=== PATIENT | male | born 1940 | race Caucasian/White ===

== ENCOUNTER → 2023-09-29 10:39 | Outpatient (REF) | payer BC, SELFPAY | LOC: RAD 10:39 | PROVIDERS: ATTENDING PHYSICIAN Family Medicine | DX: R60.9 Edema, unspecified (principal) | CPT/HCPCS: 93971 ==

== ENCOUNTER → 2023-10-23 11:00 | Outpatient (REF) | payer BC, SELFPAY | LOC: RAD 11:00 | PROVIDERS: ATTENDING PHYSICIAN Family Medicine | DX: M25.521 Pain in right elbow (principal) | CPT/HCPCS: 73080 ==

== ENCOUNTER 2023-12-27 06:27 | Day surgery (SDC) | payer BC, SELFPAY | END 2023-12-27 13:29 | disposition home or self-care (01) | LOC: GI 06:27 | PROVIDERS: ATTENDING PHYSICIAN Internal Medicine | DX: D12.4 Benign neoplasm of descending colon (principal); Z86.0101 Personal history of adenomatous and serrated colon polyps; K64.9 Unspecified hemorrhoids; N40.2 Nodular prostate without lower urinary tract symptoms; K57.30 Diverticulosis of large intestine without perforation or abscess without bleeding; D12.2 Benign neoplasm of ascending colon; D12.0 Benign neoplasm of cecum; D12.5 Benign neoplasm of sigmoid colon | CPT/HCPCS: 45385; 88305 ==

== ENCOUNTER → 2024-01-22 13:09 | Outpatient (REF) | payer BC, SELFPAY | LOC: RAD 13:09 | PROVIDERS: ATTENDING PHYSICIAN Internal Medicine; FAMILY PHYSICIAN Family Medicine | DX: M17.0 Bilateral primary osteoarthritis of knee (principal) | CPT/HCPCS: 73560; 73565 ==

== ENCOUNTER 2024-07-26 21:36 | Emergency (ER) | payer BC, SELFPAY ==
[2024-07-26 22:03] VITALS: BP 162/95
[2024-07-26 22:47] LABS: % Basophils 0.6 % (0-2); % Immature Granulocytes 0.4 % (0-0.5); % Lymphocytes 18.5 % (20.5-51.1); % Monocytes 7.6 % (1.7-9.3); % Neutrophils 70.9 % (42.2-75.2); Absolute Basophils 0.1 10^3/uL (0-0.2); Absolute Eosinophils 0.2 10^3/uL (0-0.7); Absolute Lymphocytes 1.5 10^3/uL (1.2-3.4); Absolute Monocytes 0.6 10^3/uL (0.1-0.6); Absolute Neutrophils 5.8 10^3/uL (1.4-6.5); Hematocrit 42.2 % (39.0-52.0); Hemoglobin 14.6 g/dL (13.0-18.0); Lactic Acid 1.2 mmol/L (0.7-2.0); Mean Corp Hgb Conc. 34.6 g/dL (33.0-37.0); Mean Corpuscular Hgb 31.9 pg (27.0-31.0); Mean Corpuscular Volume 92.1 fL (80.0-94.0); Mean Platelet Volume 11.1 fL (7.4-10.4); Nucleated Red Blood Cells % 0 % (-); Platelet Count 136 10^3/uL (130-400); Red Blood Cell Count 4.58 10^6/uL (4.70-6.10); Red Cell Dist. Width 12.8 % (11.5-14.5); White Blood Cell Count 8.2 10^3/uL (4.8-10.8)
[2024-07-26 22:48] LABS: INR 1.22; PT 15.7 Sec (11.4-14.6)
[2024-07-26 22:58] LABS: ALT (SGPT) 20 U/L (0-50); AST (SGOT) 24 U/L (17-59); Albumin 4.5 g/dl (3.5-5.0); Alkaline Phosphatase 76 U/L (38-126); Blood Urea Nitrogen 16 mg/dl (9-20); Calcium 9.6 mg/dl (8.4-10.2); Carbon Dioxide 27 mmol/L (22-30); Chloride 107 mmol/L (98-107); Glucose 116 mg/dl (70-99); Potassium 4.2 mmol/L (3.5-5.1); Sodium 142 mmol/L (135-145); Total Bilirubin 0.9 mg/dl (0.2-1.3); Total Protein 7.5 g/dl (6.3-8.2); eGFR > 60.00
[2024-07-26 23:56] VITALS: BMI 28.4
[2024-07-27] VITALS: BP 180/105
[2024-07-27 00:35] VITALS: BP 158/99
--- NOTE | 2024-07-27 00:37 | ED.GENMED ---
History of Present Illness
General
Chief Complaint: Skin Problem
Source: patient and family
Time Seen by Provider: 07/27/24 00:11
History of Present Illness
History of Present Illness:
This patient is an 84-year-old male who presents emergency department with a few days history of pain in the fourth toe on the left side. He denies preceding trauma or injury, fever, chills, drainage, streaking, numbness, tingling, or other
complaints. Patient has chronic lower extremity edema that is unchanged, left greater than right.
Past History
Past History
ED Past Medical History: Arrthythmia, Hypercholesterolemia and Other (General osteoarthritis,)
ED Past Surgical History: Orthopedic
Social History
Tobacco: Non-smoker
Alcohol: Occasional
Drug: None
Personal:
Living: alone
Employment: Employed
Family History
Family History: Other (Noncontributory)
Phy Exam
Physical Exam
Physical Exam:
GENERAL: Alert , in no apparent distress
EYE: pupils equal and reactive
NECK: Supple, no significant adenopathy.
ENT: o/p clr, mmm.
CARDIAC: Regular rate and rhythm .
LUNGS: Clear breath sounds bilaterally, no acute respiratory distress, no wheezes/rales/rhonchi
ABDOMEN: Soft, without focal tenderness, no r/g, no cvat
NEUROLOGICAL: Alert and oriented, no focal neuro deficits
SKIN: Warm and dry, skin intact.
MUSCULOSKELETAL: bilat le edema, well perfused. There is sl redness, assoc with swelling and diffuse ttp of L 4th toe. No drdainage/fluctuance/crepitus, no streaking. no abnl otherwise of foot.
PSYCH: Normal and appropriate interaction.
Course
Orders/Labs/Results
Orders:
Orders
07/26/24 22:10
Cardiac Monitoring- Treatment ONCE
IV Insert/Care/Rem.- Treatment PRN
O2 Therapy [RESP] Urgent
Titrate/Wean O2 to maintain O2 sat greater than (%): 93
Special Instructions: TO MAINTAIN CONTINUOUS O2 SATS > OR = 93%
Pulse Ox/cont/shift [RESP] Urgent
Quantity: 1
Special Instructions: CONTINUOUS
07/26/24 22:12
Toes 2 Views, Left CR [CR Toe(s) Min 2 Vw Left] Urgent
Comment:
Reason For Exam: 4th toe pain
Indicate Which Toe:: Fourth
07/26/24 22:20
Complete Blood Count/With Diff Urgent
Comprehensive Metabolic Panel Urgent
Lactic Acid Q4H
Comment: ON ICE, CANCEL 2ND ORDER IF FIRST LACTIC ACID LEVEL <2
Prothrombin Time Urgent
Blood Culture Q20M
RAINA Source: Blood/Venous
Specimen Description:
Comment: Urgent from separate sites. If patient screens positive for possible sepsis
07/27/24 00:43
Prednisone [Deltasone] 40 mg PO NOW STA
Abnormal Lab Results
07/26/24
22:20
RBC 4.58 L 10^6/uL
(4.70-6.10)
MCH 31.9 H pg
(27.0-31.0)
MPV 11.1 H fL
(7.4-10.4)
Lymphocytes % 18.5 L %
(20.5-51.1)
PT 15.7 H Sec
(11.4-14.6)
Glucose 116 H mg/dl
(70-99)
07/26/24 22:20
07/26/24 22:20
Vital Signs
Initial and Last Documented VS:
Initial Vital Signs
Temp Pulse Resp BP Pulse Ox
97.9 F 72 20 162/95 97
07/26/24 22:03 07/26/24 22:03 07/26/24 22:03 07/26/24 22:03 07/26/24 22:03
Last Documented Vital Signs
Temp Pulse Resp BP Pulse Ox
97.9 F 66 20 158/99 97
07/26/24 22:03 07/27/24 00:35 07/26/24 22:03 07/27/24 00:35 07/27/24 00:42
*Pulse Oximetry
SaO2: 97
Oxygen Mode of Delivery: Room air
*Critical Care Note
Total Time (30-74mins, 75-104mins- exclusive of procedures): Not Applicable
Update Note
Update Note:
Patient presents to the Emergency Department with fourth toe pain
Number and Complexity of Problems Addressed at the Encounter
� Chronic conditions affecting care:
� Acute Exacerbation and/or Progression of Chronic Illness:
� Differential Diagnosis includes: But not limited to cellulitis, gout, septic arthritis, etc. etc.
Amount and/or Complexity of Data to be Reviewed and Analyzed
� I performed an independent evaluation of and my interpretation is:
EKG:
CT:
Xrays: Toe x-ray NAD
Laboratory Studies: Generally unremarkable
Other:
� Review of other/old records reveals:
� Clinical information was obtained by an independent historian: Son who is bedside
� Prescriptions/Medications Considered but not given:
� Further testing considered but not performed:
Risk of Complications and/or Morbidity or Mortality of Patient Management
� Social determinants of health affecting care:
� Discussion with other providers (PCP, Hospitalists, Consultants, etc):
� Escalation of care including admission/observation vs risk of discharge considered: Labs vitals x-ray reviewed. Clinically I suspect most likely diagnosis is gout. I did discuss with patient and son the possibility that this
may be consistent with cellulitis although I think this is far less likely. Given patient is on Eliquis, will avoid nonsteroidals and instead prescribe prednisone, risks and benefits of this medication discussed with them. Also discussed with them
signs and symptoms of cellulitis, septic arthritis, etc. and reasons to return to the emergency department.
ED Attending Note
-
Portions of this chart may have been created with voice recognition software.� Occasional wrong word or��sound alike� substitutions may have occurred due to the inherent limitations of voice recognition software.
Discharge Plan
Departure
Patient Disposition: Home (Routine Discharge)
Date of Disposition: 07/27/24
Time of Disposition: 00:40
Patient with high blood pressure during this ER visit?: Yes
Condition: Good
Discharge Problem:
Gout
Instructions: Gout - ED discharge instructions, BLOOD PRESSURE
Prescriptions:
New
prednisone 20 mg tablet
40 mg PO DAILY 5 Days Qty: 10 0RF
No Action
Eliquis 5 MG tablet
5 mg PO BID Qty: 60 0RF
atorvastatin 40 MG tablet
40 mg PO QPM Qty: 30 0RF
Referrals:
Diego Graham [Provider Group] - Next open appointment
UNKNOWN - PT DOES,NOT KNOW [Family Provider]
Activity Restrictions/Additional Instructions:
IF YOU DEVELOP PERSISTENT OR NEW PAIN, DRAINAGE, FEVER, WORSENING REDNESS, GET WORSE, DO NOT GET BETTER, OR OTHER WORRISOME SIGNS, PLEASE RETURN TO THE ER IMMEDIATELY!
Interventions
Interventions:
*Risk Screen - Suicide Last Done: 07/26/24 22:03
*General Assessment Last Done: 07/26/24 22:03
*Neglect/Abuse Screening Last Done: 07/26/24 22:03
*ED- Fall Risk Assessment Last Done: 07/26/24 22:03
*ED COVID-19 Vaccine History Last Done: 07/26/24 22:03
*Nursing Disposition Last Done: 07/27/24 00:35
ED-Skin Assessment Last Done: 07/27/24 00:01
Discharge Date and Time
Discharge Date/Time: 07/27/24 00:59
Print Language: GEORGIAN
[2024-07-27] MEDS: DELTASONE 40 MG PO (00:48)
== END 2024-07-27 00:59 | disposition home or self-care (01) ==
LOC: EMR 21:36
PROVIDERS: EMERGENCY PHYSICIAN Emergency Medicine
DX: M10.9 Gout, unspecified (principal); E78.00 Pure hypercholesterolemia, unspecified; M19.90 Unspecified osteoarthritis, unspecified site; Z79.01 Long term (current) use of anticoagulants
CPT/HCPCS: 99283; 73660; 80053; 83605; 85025; 85610; 87040